=== PATIENT | male | born 1930 | race Two or more races ===

== ENCOUNTER 2017-05-09 09:28 | Outpatient (CLI) | payer OTHER ==
[~2017-05-09 09:28] MED LIST: MOTRIN800 MG PO
== END 2017-05-09 15:00 | disposition home or self-care (01) ==
LOC: TOM 09:28
DX: C61 Malignant neoplasm of prostate (principal)

== ENCOUNTER 2017-05-13 10:39 | Outpatient (CLI) | payer OTHER | END 2017-05-13 10:55 | disposition home or self-care (01) | LOC: NUCLEAR 10:39 | DX: C61 Malignant neoplasm of prostate (principal) | CPT/HCPCS: 78306; A9503 ==

== ENCOUNTER → 2018-02-09 15:57 | Outpatient (CLI) | payer OTHER | END | disposition home or self-care (01) | LOC: RAD 15:57 | DX: M25.561 Pain in right knee (principal); Z01.810 Encounter for preprocedural cardiovascular examination ==

== ENCOUNTER 2018-09-03 07:23 | Outpatient (CLI) | payer OTHER | END 2018-09-03 07:25 | disposition home or self-care (01) | LOC: TOM 07:23 | DX: R10.84 Generalized abdominal pain (principal) ==

== ENCOUNTER 2018-09-03 07:56 | Outpatient (CLI) | payer OTHER | END 2018-09-03 08:04 | disposition home or self-care (01) | LOC: NUCLEAR 07:56 | DX: C61 Malignant neoplasm of prostate (principal) | CPT/HCPCS: 78306; A9503 ==

== ENCOUNTER 2018-09-11 09:29 | Outpatient (CLI) | payer OTHER | END 2018-09-11 09:39 | disposition home or self-care (01) | LOC: TOM 09:29 | DX: R91.1 Solitary pulmonary nodule (principal) ==

== ENCOUNTER 2018-09-23 08:59 | Outpatient (CLI) | payer OTHER | END 2018-09-23 09:21 | disposition home or self-care (01) | LOC: NUCLEAR 08:59 | DX: C61 Malignant neoplasm of prostate (principal) | CPT/HCPCS: 78815; A9552 ==

== ENCOUNTER → 2019-04-05 10:16 | Outpatient (CLI) | payer OTHER | END | disposition home or self-care (01) | LOC: LAB 10:16 | DX: H50.22 Vertical strabismus, left eye (principal); H50.05 Alternating esotropia; N20.0 Calculus of kidney ==